=== PATIENT | male | born 1995 | race African-American/Black ===

== ENCOUNTER 2017-01-07 00:23 | Emergency (ER) | payer OTHER ==
[~2017-01-07] VITALS: Ht 193 cm; Wt 77.1 kg
[2017-01-07] MEDS ORDERED: IV NS 0.9% 1,000 ML BAG IV ONE (00:30)
--- NOTE | 2017-01-07 00:30 | NUR ---
21 YO MALE BB RA FROM ALF. PER [employer], PT BG READ HIGH. PT AMBULATED TO ER BED, SKIN WARM AND DRY, RR EVEN AND UNLABORED WILL CONTINUE TO MONITOR
[2017-01-07] MEDS ORDERED: IV NS 0.9% 1,000 ML ONE (00:34)
[2017-01-07] MEDS ORDERED: INSULIN REGULAR, HUMAN 100 UNIT/ML 10 ML VIAL ONE (00:48)
--- NOTE | 2017-01-07 00:53 | NUR ---
VERIFIED WITH MEY SHEN FOR MEDICATION; 15 UNITS REGULAR INSULIN IVP.
[2017-01-07] MEDS ORDERED: INSULIN REGULAR, HUMAN 100 UNIT/ML 10 ML VIAL IV ONE (01:00)
[2017-01-07 01:07] LABS: ACETONE, SERUM NEGATIVE (NEGATIVE)
[2017-01-07 01:11] LABS: CALCIUM, SERUM 8.6 mg/dL (8.5-10.1); CARBON DIOXIDE 30 mmol/L (21-32); CHLORIDE 96 mmol/L (98-107); CREATININE 1.5 mg/dL (0.6-1.3); GFR 72 mL/min (>60); POTASSIUM 4.8 mmol/L (3.5-5.1); SODIUM SERUM 132 mmol/L (136-145); UREA NITROGEN, BLOOD 16 mg/dL (7-18)
[2017-01-07 01:12] LABS: GLUCOSE 614 mg/dL (74-106)
[2017-01-07 02:00] VITALS: BP 147/84
--- NOTE | 2017-01-07 02:01 | NUR ---
Patient discharged to home in stable condition. Written and verbal after care instructions given. Patient verbalizes understanding of instructED. ambulatory with a steady gait
== END 2017-01-07 02:05 | disposition home or self-care (01) ==
LOC: ER 00:26
DX: E10.65 Type 1 diabetes mellitus with hyperglycemia (principal); Z79.4 Long term (current) use of insulin
CPT/HCPCS: 36415; 80048; 82010; 82962 ×2; 96361; 96374; 99284; A4606; J1815; J7030; Z7610